=== PATIENT | female | born 1980 | race Caucasian/White ===

== ENCOUNTER → 2019-03-03 | Day surgery (SDC) | payer OTHER ==
[~2019-03-03] MED LIST: ACCUNEB SO1.25 MG/1 INH; PROTONIX40 M1 PO
--- NOTE | ~2019-03-03 | OP ---
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 PROCEDURES: Right knee arthroscopic surgery with partial lateral meniscectomy, debridement of Hoffa's fat pad, chondroplasty of the patella, and chondroplasty of the medial femoral condyle. SURGEON: Breezy Arteaga DO ACCOUNT PLANNER: Arlin Arteaga DO ANESTHESIA: General and local. ANTIBIOTICS: Ancef 2 grams. ESTIMATED BLOOD LOSS: 5 mL. SPECIMENS: None. DRAINS: None. COMPLICATIONS: None. CONDITION: The patient was brought back stable to PACU and will be discharged when aroused in stable condition. INDICATIONS FOR SURGERY: The patient has been followed closely in the outside clinical setting for her right knee pain. She has had continued knee pain after conservative treatment, which includes exercise, weight loss, physical therapy. She states that for her job that, this is really starting to affect her lifestyle and she wanted to have the surgery performed. Risks and benefits of the surgery were clearly explained to the patient. These risks include, [place] [address] OPERATIVE REPORT Name: CASSIE MORRIS KATI Room: [facility].#: [id number] Admission: 03/03/19 Attend Phys: Breezy Arteaga DO Discharge: Date of : 82 Report #: [id number] not limited to infection, continued pain, neurovascular injury and other imponderables associated with general anesthesia. The patient understood these risks and signed for surgery performed. DESCRIPTION OF PROCEDURE: The patient was brought back to the preoperating suite. A timeout was performed where the patient's birthday, allergies, medications and condition were read and agreed upon by all present. The right knee was found to have an initial place by the operative surgeon. Everybody agreed on the correct operative leg. The patient was draped in sterile and standard fashion. The leg was then marked on the medial and lateral joint line, 5 mL of Marcaine were then injected into the medial and lateral joint lines. A small incision was then made using a 15-blade scalpel. Trocar was then placed into the lateral portal. The trochlear notch fat pad and suprapatellar pouch were visualized. She had softening noted to the undersurface of the patella as well as an enlarged Hoffa's fat pad noted. Then, the medial gutter was then visualized as well as the medial aspect of her knee. She was noted to have some arthritic change and softening of the medial femoral condyle as well. Multiple images were taken. At this point, her medial meniscus was probed and felt to be intact. Then ACL and PCL were visualized. The ACL was probed, which made showed maybe some loosening, but this was nothing of concern at this point, it was intact and was probed as well. Then, the scope was brought into the lateral portal. The lateral meniscus was visualized and horizontal tear was noted in the anterior aspect of the lateral meniscus. The medial portal was then opened with a trocar and the lateral meniscus was then debrided smoothing out the tear and was then afterwards probed showing stability. We then debrided the medial femoral condyle. We then turned our efforts to the Hoffa's fat pad, which we debrided as well. The patient was then injected with Kenalog and Marcaine mixture into the lateral incision. Her knee was cleaned and then 2-0 Vicryl sutures were then used to close the skin. Xeroform, soft roll and Kerlix was then used, as well as a compressive Roland bandage to wrap the patient and provide sterile dressing. She was extubated and sent to PACU in stable condition. POSTOPERATIVE COURSE AND EVALUATION: The patient will be awakened in the PACU once she is stable with her vital signs and pain control and neurovascularly intact to extremities. She will be discharged home. She will then followup with the office in 2 weeks. She can weightbear as tolerated and she is going to call the office if she has any questions or concerns. By: [id number] Arteaga DO /jorden
[2019-03-03 06:38] LABS: HEMATOCRIT 41.2 % (37.0-47.0)
== END | disposition home or self-care (01) ==
LOC: M.SUR 06:07
PROVIDERS: Orthopaedic Surgery
DX: S83.281A Other tear of lateral meniscus, current injury, right knee, initial encounter (principal); M79.4 Hypertrophy of (infrapatellar) fat pad; M94.261 Chondromalacia, right knee; Z88.0 Allergy status to penicillin; Z79.899 Other long term (current) drug therapy; Z98.890 Other specified postprocedural states; X58.XXXA Exposure to other specified factors, initial encounter; Y93.89 Activity, other specified; Y92.89 Other specified places as the place of occurrence of the external cause; Y99.8 Other external cause status